=== PATIENT | female | born 1970 | race Two or more races ===

== ENCOUNTER 2024-01-04 08:44 | Emergency (ER) | payer OTHER ==
[2024-01-04 08:54] VITALS: BP 125/79; PULSE 83; RESP 18; TEMP 98.4; BMI 33.3
[2024-01-04 09:14] LABS: PH,URINE 5.5 (5.0-8.0); URINE APPEARANCE CLEAR; URINE BILIRUBIN NEGATIVE (NEGATIVE); URINE COLOR YELLOW; URINE GLUCOSE (UA) NEGATIVE (NEGATIVE); URINE KETONE NEGATIVE (NEGATIVE); URINE LEUK ESTERASE NEGATIVE (NEGATIVE); URINE NITRITE NEGATIVE (NEGATIVE); URINE PROTEIN NEGATIVE (NEGATIVE); URINE UROBILINOGEN 0.2 mg/dL (0.2-1.0)
[2024-01-04] MEDS ORDERED: ACETAMINOPHEN INJECTION 100 ML IVPB ONE (10:11)
[2024-01-04] MEDS ORDERED: ONDANSETRON 4 MG/2 ML VIAL ONE (10:11)
[2024-01-04] MEDS: ACETAMINOPHEN 1000 MG/100 ML BAG IVPB ONE (10:15)
[2024-01-04] MEDS: SODIUM CHLORIDE 1,000 ML IV STA (10:15)
[2024-01-04] MEDS: ONDANSETRON 4 MG/2 ML VIAL IVPUSH ONE (10:15)
[2024-01-04 10:28] LABS: BASO % 0.6 % (0-2.0); EOS % 0.8 % (0-4.5); LYMPH % 36.3 % (8-40); MCH 25.6 pg (25.7-33.7); MCHC 34.3 g/dl (32.0-36.0); MEAN CELL VOLUME 74.6 fl (80-96); MONO % 6.7 % (3.8-10.2); NEUT % 55.6 % (42.8-82.8); PLATELET COUNT 251 10^3/uL (134-434); RBC 5.49 M/mm3 (3.60-5.2)
[2024-01-04 10:44] LABS: HCG,QUALITATIVE URINE Negative
[2024-01-04 10:51] LABS: POTASSIUM 4.2 mmol/L (3.5-5.1)
[2024-01-04 10:53] LABS: ALBUMIN 3.8 g/dl (3.4-5.0); BLOOD UREA NITROGEN 12.1 mg/dL (7-18); CALCIUM 9.7 mg/dL (8.5-10.1)
[2024-01-04 10:56] LABS: CREATININE 0.9 mg/dL (0.55-1.3)
[2024-01-04 10:58] LABS: BILIRUBIN,TOTAL 0.6 mg/dL (0.2-1); TOT PROT 7.5 g/dl (6.4-8.2)
== END 2024-01-04 13:02 | disposition home or self-care (01) ==
LOC: JER 08:44
PROC: 3E033NZ Introduction of Analgesics, Hypnotics, Sedatives into Peripheral Vein, Percutaneous Approach (ICD-10-PCS; principal; 2024-01-04)
PROC: 3E033GC Introduction of Other Therapeutic Substance into Peripheral Vein, Percutaneous Approach (ICD-10-PCS; 2024-01-04)
PROC: 3E0337Z Introduction of Electrolytic and Water Balance Substance into Peripheral Vein, Percutaneous Approach (ICD-10-PCS; 2024-01-04)
DX: N30.00 Acute cystitis without hematuria (principal); D25.9 Leiomyoma of uterus, unspecified; M54.50 Low back pain, unspecified; R10.32 Left lower quadrant pain; R35.0 Frequency of micturition; R11.0 Nausea
CPT/HCPCS: 36415; 74177-TC; 80053; 81003; 84703; 85025; 87086; 99285-25; J0131; Q9967

== ENCOUNTER 2024-01-18 16:04 | Emergency (ER) | payer OTHER ==
[2024-01-18 16:08] VITALS: BP 122/80; PULSE 98; RESP 20; TEMP 98; BMI 33.3
[2024-01-18 17:16] LABS: BASO % 0.6 % (0-2.0); EOS % 1.8 % (0-4.5); HEMATOCRIT 40.6 % (32.4-45.2); HEMOGLOBIN 13.5 GM/dL (10.7-15.3); LYMPH % 34.3 % (8-40); MCH 25.2 pg (25.7-33.7); MCHC 33.2 g/dl (32.0-36.0); MEAN CELL VOLUME 75.9 fl (80-96); MEAN PLT VOLUME 7.9 fl (7.5-11.1); MONO % 7.4 % (3.8-10.2); NEUT % 55.9 % (42.8-82.8); PLATELET COUNT 254 10^3/uL (134-434); RBC 5.36 M/mm3 (3.60-5.2); WHITE BLOOD COUNT 7.8 K/mm3 (4.0-10.0)
[2024-01-18 17:24] LABS: INR 0.9 (0.83-1.09); PROTHROMBIN TIME (PATIENT) 10.2 SEC (9.7-13.0)
[2024-01-18] MEDS ORDERED: KETOROLAC TROMETHAMINE 15 MG/ML VIAL ONE (17:31)
[2024-01-18] MEDS: KETOROLAC TROMETHAMINE 15 MG/ML VIAL IVPUSH ONE (17:40)
[2024-01-18 17:41] LABS: POTASSIUM 4.3 mmol/L (3.5-5.1)
[2024-01-18 17:43] LABS: ALBUMIN 3.6 g/dl (3.4-5.0); CALCIUM 9.4 mg/dL (8.5-10.1); MAGNESIUM 2.2 mg/dL (1.8-2.4)
[2024-01-18 17:44] LABS: BLOOD UREA NITROGEN 6.9 mg/dL (7-18)
[2024-01-18 17:47] LABS: CREATININE 0.9 mg/dL (0.55-1.3)
[2024-01-18 17:48] LABS: BILIRUBIN,TOTAL 0.4 mg/dL (0.2-1); TOT PROT 7.4 g/dl (6.4-8.2)
== END 2024-01-18 18:30 | disposition home or self-care (01) ==
LOC: JER 16:04
PROC: 3E0333Z Introduction of Anti-inflammatory into Peripheral Vein, Percutaneous Approach (ICD-10-PCS; principal; 2024-01-18)
DX: R07.89 Other chest pain (principal); R06.02 Shortness of breath; Z20.822 Contact with and (suspected) exposure to COVID-19
CPT/HCPCS: 0241U-QW; 36415; 71046-TC-FY; 80053; 83735; 84484; 84703; 85025; 85610; 85730; 93005; 93010; 99285-25

== ENCOUNTER 2024-12-26 16:24 | Emergency (ER) | payer OTHER ==
[2024-12-26 16:36] VITALS: BP 108/71; PULSE 72; RESP 20; TEMP 98.8; BMI 31.9
[2024-12-26] MEDS ORDERED: LIDOCAINE 4% PATCH TP ONE (17:08)
[2024-12-26] MEDS ORDERED: KETOROLAC TROMETHAMINE 30 MG/1 ML VIAL ONE (17:08)
[2024-12-26] MEDS: KETOROLAC TROMETHAMINE 30 MG/1 ML VIAL IM ONE (17:14)
[2024-12-26] MEDS: LIDOCAINE 4% PATCH TP ONE (17:14)
[2024-12-26] MEDS ORDERED: LIDOCAINE PATCH REMOVAL MC SCH (22:00)
== END 2024-12-26 17:48 | disposition home or self-care (01) ==
LOC: JER 16:24 → JERFT 16:24
PROC: 3E0233Z Introduction of Anti-inflammatory into Muscle, Percutaneous Approach (ICD-10-PCS; principal; 2024-12-26)
DX: M79.661 Pain in right lower leg (principal); G89.29 Other chronic pain
CPT/HCPCS: 99284-25